=== PATIENT | female | born 1960 | race Hispanic/Latino ===

== ENCOUNTER 2019-09-19 11:40 | Emergency (ER) | payer SELFPAY ==
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
[2019-09-19 13:29] VITALS: BP 111/65
== END 2019-09-19 13:27 | disposition home or self-care (01) ==
LOC: ED 11:40
DX: S82.291A Other fracture of shaft of right tibia, initial encounter for closed fracture (principal); S40.811A Abrasion of right upper arm, initial encounter; F17.200 Nicotine dependence, unspecified, uncomplicated; F12.10 Cannabis abuse, uncomplicated; J44.9 Chronic obstructive pulmonary disease, unspecified; X58.XXXA Exposure to other specified factors, initial encounter; Y93.89 Activity, other specified; Y92.89 Other specified places as the place of occurrence of the external cause; Y99.8 Other external cause status
CPT/HCPCS: 99283